=== PATIENT | male | born 1985 | race Caucasian/White ===

== ENCOUNTER 2017-09-24 07:06 | Inpatient (IN) | payer OTHER ==
[~2017-09-24] VITALS: Ht 170.2 cm; Wt 129.9 kg
[~2017-09-24 07:06] MED LIST: HUMALOG100 UNIT/2 SC; LANTUS SOLOS100 U/ML SC; METFORMIN1000 MG PO; MOTRIN 600 MG600 MG PO; ZITHROMAX Z-PA250 M1 PO
--- NOTE | 2017-09-24 07:28 | ED GENERAL ADULT ---
History of Present Illness General Chief Complaint: Dyspnea (COPD, CHF, Other) Stated Complaint: SOB Source: patient Exam Limitations: no limitations Allergies Coded Allergies: shrimp (Severe, MOUTH SWELLING 09/24/17) Reconcile Medications Atorvastatin Calcium (Lipitor) 10 MG TABLET 1 TAB PO DAILY CHOLESTEROL ( Reported) Insulin Degludec (Tresiba Flextouch U-200) 200 UNIT/ML (3 ML) INSULN.PEN 24 UNITS SC DAILY DIABETES (Reported) Insulin Lispro (Humalog) (Unknown Strength) VIAL (Unknown Dose) SC SEE SLIDING SCALE DIABETES (Reported) Metformin HCl 500 MG TABLET 1 TAB PO BID DIABETES (Reported) Triage Note: PT C/O SOB WITH EXERTION SINCE THIS MORNING. STATES HE HAD ASTHMA A CHILD BUT HAS NEVER HAD AN ASTHMA ATTACK. PT STATES EVEN WALKING CAUSED SOB. O2 SATS 98% IN TRIAGE. PT DENIES CP Triage Nurses Notes Reviewed? yes Onset: Abrupt Duration: day(s): Timing: recent history HPI: 09/24/17 8:48 am 32-year-old male presents to the emergency department complaining of difficulty breathing. The patient states he was in his usual state of health until the past several days when he developed progressive difficulty breathing. He does admit to polyuria. He has past medical history of asthma and diabetes. He denies any fever or cough. No chest pain. (Berlin Ziegler DO) Vital Signs & Intake/Output Vital Signs & Intake/Output Vital Signs Date Time Temp Pulse Resp B/P B/P Pulse O2 O2 Flow FiO2 Mean Ox Delivery Rate 09/24 1156 98.0 107 20 146/80 99 Room Air 09/24 1025 97.7 114 18 139/73 98 Room Air 09/24 0857 98.3 107 20 129/72 99 Room Air 09/24 0819 99 Room Air 09/24 0717 97.4 121 20 132/89 98 Room Air (Scott COLEMAN,Israel Reyes) Past History Travel History Traveled to [place] past 21 day No Medical History Any Pertinent Medical History? see below for history Neurological: NONE EENT: NONE Cardiovascular: NONE Respiratory: asthma Gastrointestinal: NONE Hepatic: NONE Renal: NONE Musculoskeletal: NONE Psychiatric: NONE Endocrine: diabetes Surgical History Surgical History: none Psychosocial History What is your primary language Maltese Tobacco Use: Never used ETOH Use: occasional use Illicit Drug Use: denies illicit drug use Family History Hx Contributory? No (Berlin Ziegler DO) Review of Systems Review of Systems Constitutional: Denies: fever. EENTM: Reports: no symptoms. Respiratory: Reports: short of breath. Denies: cough. Cardiovascular: Denies: chest pain. GI: Denies: abdominal pain. Genitourinary: Reports: frequency. Musculoskeletal: Reports: no symptoms. Skin: Denies: rash. Neurological/Psychological: Reports: no symptoms. Hematologic/Endocrine: Reports: no symptoms. Immunologic/Allergic: Reports: no symptoms. (Berlin Ziegler DO) Physical Exam Physical Exam General Appearance: well developed/nourished, alert, anxious Head: atraumatic, normal appearance Eyes: Bilateral: normal appearance, PERRL, EOMI. Ears, Nose, Throat: normal pharynx, normal ENT inspection Neck: normal inspection, supple, full range of motion Respiratory: normal breath sounds, chest non-tender, no respiratory distress Cardiovascular: regular rate/rhythm Peripheral Pulses: 4+ radial (R), 4+ radial (L) Gastrointestinal: soft, non-tender Back: normal range of motion Extremities: normal range of motion Neurologic/Psych: no motor/sensory deficits, awake, alert, oriented x 3 Skin: intact, normal color, warm/dry Core Measures ACS in differential dx? No CVA/TIA Diagnosis: No Sepsis Present: No Sepsis Focused Exam Completed? No (Berlin Ziegler DO) Progress Differential Diagnoses I considered the following diagnoses in my evaluation of the patient: [Pneumonia , pulmonary embolism, diabetic ketoacidosis, asthma] Initial ED EKG: nonspecific ST T wave chg, sinus tach (Berlin Ziegler DO) Plan of Care: Orders Procedure Date/time Status BASIC ELECTROLYTES PLUS BUN&CR 09/24 1200 Active Pathway - chart 09/24 1050 Active House Staff 09/24 1050 Active Code Status 09/24 1050 Active FingerStick- Glucose 09/24 1009 Active Patient Data 09/24 0852 Active Admit to inpatient 09/24 0850 Active Add-on Test (ER Only) 09/24 0850 Active URINALYSIS 09/24 922 Complete Intake & Output 09/25 0719 Active LACTIC ACID 09/24 814 Complete CORTISOL AM 09/24 814 Complete ACETONE 09/24 814 Complete Add-on Test (ER Only) 09/24 812 Active TROPONIN LEVEL 09/24 812 Complete D-DIMER 09/24 812 Complete COMPREHENSIVE METABOLIC PANEL 09/24 812 Complete CBC WITHOUT DIFFERENTIAL 09/24 812 Complete EKG 09/24 717 Active VTE Mechanical Prophylaxis 09/24 UNK Active Current Medications Sig/Elli Start time Last Medication Dose Stop Time Status Admin Enoxaparin Sodium 40 MG DAILY 09/25 0900 AC (Lovenox) Sodium Chloride 1,000 ML BOLUS ONE 09/24 1145 UNVr 09/24 (Normal Saline 0.9%) 09/24 1344 1151 Potassium Chloride 20 MEQ ONCE ONE 09/24 1000 AC 09/24 (KCl 20MEQ in D5W 09/24 1639 1000 2NS 1000ML) Dextrose/Sodium 1,000 ML Chloride (D5W-05/20 Normal Saline 1000ML) Sodium Bicarbonate 150 MEQ Q6H 09/24 0930 CAN (Sodium Bicarbonate 8.4%) Dextrose/Water 850 ML (D5W 1000) Laboratory Tests 09/24/17 0932: Urinalysis LIGHT H, Urine Color STRAW, Urine Clarity CLEAR, Urine pH 6.0, Ur Specific [place] >= 1.030, Urine Protein 30 H, Urine Ketones >=80, Urine Nitrite NEG, Urine Bilirubin NEG, Urine Urobilinogen 0.2, Ur Leukocyte Esterase NEG, Ur Microscopic SEDIMENT EXAMINED, Urine RBC RARE, Urine WBC RARE, Urine Bacteria RARE H, Granular Casts RARE H, Urine Mucus FEW, Urine Hemoglobin NEG, Urine Glucose 500 H 09/24/17 0815: Anion Gap 30 H, Estimated GFR > 60, BUN/Creatinine Ratio 11.1, Glucose 322 H, Lactic Acid 1.1, Calcium 9.0, Total Bilirubin 1.3, AST 69 H, ALT 162 H, Alkaline Phosphatase 89, Troponin I < 0.01, Total Protein 8.1, Albumin 5.1 H, Globulin 3.0, Albumin/Globulin Ratio 1.7, Cortisol AM Sample 27.0 H, D-Dimer High Sensitivty 200, CBC w Diff NO MAN DIFF REQ, RBC 5.94, MCV 86.6, MCH 29.6, MCHC 34.2, RDW 13.3, MPV 8.8, Gran % 75.0, Lymphocytes % 16.0 L, Monocytes % 7.0, Eosinophils % 1.6, Basophils % 0.4, Absolute Granulocytes 6.6 H, Absolute Lymphocytes 1.4, Absolute Monocytes 0.6, Absolute Eosinophils 0.1, Absolute Basophils 0, Acetone Level POSITIVE AT 1:8 DIL (Israel Chavez MD) Departure Departure Disposition: STILL A PATIENT Condition: Stable Clinical Impression Primary Impression: Dyspnea Referrals: Dunia OCLEMAN,Carrington August Departure Forms: Customer Survey General Discharge Information (Berlin Ziegler DO) Admission Note Spoke With: Bassem COLEMAN,Aron Pierce Documentation of Exam: Documentation of any treatments & extenuating circumstances including Concerns Regarding Discharge (functional status, medication knowledge or non-compliance, living conditions, etc.) that warrant an admission rather than observation: [ Patient is in DKA. Patient denies any history of toxic alcohol. Patient ran out of his insulin 2 weeks ago. Case discussed with Dr. Adams will see him in consultation. A bicarbonate drip has been initiated. An insulin drip has been initiated. Patient is receiving D5 half normal with potassium as well.] (Israel Cahvez MD) Critical Care Note Critical Care Note Critical Care Time: non-applicable (Berlin Ziegler DO) Critical Care Note Critical Care Time: mins: (90 MIN) (Israel Chavez MD)
[2017-09-24] MEDS ORDERED: TRESIBA FL200 UNIT/1 SC (08:04)
[2017-09-24] MEDS ORDERED: LIPITOR10 M1 PO (08:04)
[2017-09-24] MEDS ORDERED: METFORMIN HCL500 M3 PO (08:04)
[2017-09-24 08:28] LABS: ABSOLUTE BASOPHIL COUNT 0 /CUMM (0.0-0.2); ABSOLUTE EOSINOPHIL COUNT 0.1 /CUMM (0.0-0.7); ABSOLUTE GRANULOCYTE CT 6.6 /CUMM (1.4-6.5); ABSOLUTE LYMPH COUNT 1.4 /CUMM (1.2-3.4); ABSOLUTE MONOCYTE COUNT 0.6 /CUMM (0.10-0.60); BASOPHIL % 0.4 % (0.0-2.0); EOSINOPHIL % 1.6 % (0-5); HEMATOCRIT 51.4 % (42-52); MEAN CORPUSCULAR HGB 29.6 PG (27.0-31.0); MEAN CORPUSCULAR HGB CONC 34.2 G/DL (33.0-37.0); MEAN CORPUSCULAR VOLUME 86.6 FL (80.0-94.0); MEAN PLATELET VOLUME 8.8 FL (7.4-10.4); PLATELET COUNT 298 /CUMM (130-400); RBC DISTRIBUTION WIDTH 13.3 % (11.5-14.5); RED BLOOD CELL CT 5.94 /CUMM (4.70-6.10); WHITE BLOOD CELL COUNT 8.8 /CUMM (4.8-10.8)
--- NOTE | 2017-09-24 08:40 | RADIOLOGY REPORT ---
EXAMINATION: XR PORTABLE CHEST CLINICAL INFORMATION: 32-year-old male patient with shortness of breath. COMPARISON: Chest x-ray on 11/10/2013. (Negative). TECHNIQUE: Portable AP portable semierect view of the chest was obtained. FINDINGS: No significant abnormality is noted involving the heart, lungs, mediastinum, bony thorax or soft tissues. IMPRESSION: Unremarkable examination.
--- NOTE | 2017-09-24 10:32 | History & Physical ---
Earl COLEMAN,[facility] 09/24/17 1031: General Information and HPI MD Statement: I have seen and personally examined DARBY LANE and documented this H&P. The patient is a 32 year old M who presented with a patient stated chief complaint of shortness of breath. Source of Information: patient Exam Limitations: no limitations History of Present Illness: This is a 32-year-old pleasant gentleman with a past medical history of type 1 diabetes diagnosed 10 years ago managed with Tresibia and NovoLog Flex pen to the ED with complaints of shortness of breath. Pt reports that earlier today in the morning, he developed shortness of breath. He described his breathing as rapid and was not exertional dependent. He denied any upper respiratory symptoms including cough, mucus production, fever, chills, recent infection, sick contacts or recent travel. He also did not complain of any chest pain, palpitation, lower extremity edema or apnea. At the ED, he reported that he has not taken his insulin regimen for about 1-1/2 week. He states that he had ran out of refills on both his NovoLog and Tresibia and it was his understanding that he needed to go see his review assistant before he gets any refills. He reports that after 1 week off not taking his insulin he started developing symptoms of worsening polyuria, he however did not inform his review assistant and the reason why he presented today, was for the rapid breathing. At the ED, patient was found to have sugars of 320, a bicarbonate of 6, and positive ketones. Allergies/Medications Allergies: Coded Allergies: shrimp (Severe, MOUTH SWELLING 09/24/17) Home Med list Atorvastatin Calcium (Lipitor) 10 MG TABLET 1 TAB PO DAILY CHOLESTEROL ( Reported) Insulin Degludec (Tresiba Flextouch U-200) 200 UNIT/ML (3 ML) INSULN.PEN 24 UNITS SC DAILY DIABETES (Reported) Insulin Lispro (Humalog) (Unknown Strength) VIAL (Unknown Dose) SC SEE SLIDING SCALE DIABETES (Reported) Metformin HCl 500 MG TABLET 1 TAB PO BID DIABETES (Reported) Past History Travel History Traveled to [place] past 21 day No Medical History Neurological: NONE EENT: NONE Cardiovascular: hyperlipidemia Respiratory: asthma Gastrointestinal: NONE Hepatic: NONE Renal: NONE Musculoskeletal: NONE Psychiatric: NONE Endocrine: diabetes Surgical History Surgical History: none Past Family/Social History Psychosocial History ETOH Use: occasional use Illicit Drug Use: denies illicit drug use Review of Systems Review of Systems EENTM: Reports: no symptoms. Cardiovascular: Reports: no symptoms. Respiratory: Reports: short of breath. GI: Reports: no symptoms. Genitourinary: Reports: no symptoms. Musculoskeletal: Reports: no symptoms. Skin: Reports: no symptoms. Neurological/Psychological: Reports: no symptoms. Hematologic/Endocrine: Reports: no symptoms. Immunologic/Allergic: Reports: no symptoms. All Other Systems: Reviewed and Negative Exam & Diagnostic Data Last 24 Hrs of Vital Signs/I&O Vital Signs Date Time Temp Pulse Resp B/P B/P Pulse O2 O2 Flow FiO2 Mean Ox Delivery Rate 09/24 1156 98.0 107 20 146/80 99 Room Air 09/24 1025 97.7 114 18 139/73 98 Room Air 09/24 0857 98.3 107 20 129/72 99 Room Air 09/24 0819 99 Room Air 09/24 0717 97.4 121 20 132/89 98 Room Air Intake & Output 09/24 1600 09/24 0800 09/24 0000 Intake Total 1000 Output Total Balance 1000 Intake, IV 1000 Patient 129.274 kg 129.274 kg Weight Weight Reported by Patient Reported by Patient Measurement Method Physical Exam General Appearance Alert, Oriented X3, Cooperative Skin No Breakdown, No Significant Lesion Skin Temp/Moisture Exam: Warm/Dry Sepsis Skin Exam (color): Normal for Ethnicity HEENT Atraumatic, Mucous Membr. moist/pink Neck Supple, No JVD Lymphatic Cervical nl Cardiovascular Regular Rate, Normal S1, Normal S2, No Murmurs Lungs Clear to Auscultation, Normal Air Movement Abdomen Normal Bowel Sounds, Soft, No Tenderness Neurological Normal Speech, Strength at 5/5 X4 Ext, Normal Tone, Sensation Intact, Reflexes 2+ Extremities No Clubbing, No Cyanosis, No Edema, Normal Pulses, No Tenderness/ Swelling Last 24 Hrs of Labs/Jason: Laboratory Tests 09/24/17 0932: Urinalysis LIGHT H, Urine Color STRAW, Urine Clarity CLEAR, Urine pH 6.0, Ur Specific [place] >= 1.030, Urine Protein 30 H, Urine Ketones >=80, Urine Nitrite NEG, Urine Bilirubin NEG, Urine Urobilinogen 0.2, Ur Leukocyte Esterase NEG, Ur Microscopic SEDIMENT EXAMINED, Urine RBC RARE, Urine WBC RARE, Urine Bacteria RARE H, Granular Casts RARE H, Urine Mucus FEW, Urine Hemoglobin NEG, Urine Glucose 500 H 09/24/17 0815: Anion Gap 30 H, Estimated GFR > 60, BUN/Creatinine Ratio 11.1, Glucose 322 H, Lactic Acid 1.1, Calcium 9.0, Total Bilirubin 1.3, AST 69 H, ALT 162 H, Alkaline Phosphatase 89, Troponin I < 0.01, Total Protein 8.1, Albumin 5.1 H, Globulin 3.0, Albumin/Globulin Ratio 1.7, Cortisol AM Sample 27.0 H, D-Dimer High Sensitivty 200, CBC w Diff NO MAN DIFF REQ, RBC 5.94, MCV 86.6, MCH 29.6, MCHC 34.2, RDW 13.3, MPV 8.8, Gran % 75.0, Lymphocytes % 16.0 L, Monocytes % 7.0, Eosinophils % 1.6, Basophils % 0.4, Absolute Granulocytes 6.6 H, Absolute Lymphocytes 1.4, Absolute Monocytes 0.6, Absolute Eosinophils 0.1, Absolute Basophils 0, Acetone Level POSITIVE AT 1:8 DIL Assessment/Plan Assessment: This is a 32-year-old gentleman with a 10 year history of type 1 diabetes who has not taken his insulin regimen for 1-1/2 weeks, presents with symptoms of shortness of breath and rapid breathing in the setting of elevated blood glucose levels, decreased bicarbonate and ketonuria. Impression * Shortness of breath, transient, now resolved. Most likely secondary to labored breathing due to Kussmaul breathing associated with metabolic acidosis from DKA. * Diabetes ketoacidosis as evident by elevated sugars of 322, bicarbonate of 6, ph of 7.22, and positive ketones. The cause of this patient's DKA is interruption of insulin therapy for 1-1/2 weeks. Underlying infection is another common cause of DKA, however patient does not show any clinical signs of infection. * History of chronic diseases: Diabetes type 1. Plan Admit to ICU Nothing by mouth s/p normal saline 1 L bolus, continue with 500 mils bolus 2 for now, Continue 6 units per hour of insulin drip, adjust accordingly per glucose level Continue D5 half normal saline at 150 per hour per endocrine recommendation as patient's blood glucose are not greatly elevated therefore will benefit on the D5 in the context of insulin drip use Accu-Chek every 1 hour Continue with 20 meq K+ supplementation, with the use of insulin, intracellualr shift of potassium can be anticipated BEP every 4-6 for now, hold insulin if k+ level fall below 3.3 Will switch to subcutaneous insulin once anion gap closes and bicarbonate improves to ~18, will allow a 1/2-1 hour overlap between insulin drip and the initiation of subcutaneous insulin. At that point based on patient ability to eat we will decide on wether to continue D5. Status full code DVT prophylaxis enoxaparin As Ranked By This Provider Problem List: 1. Dyspnea 2. DKA, type 1 Core Measures/Misc (02/02) Acute Coronary Syndrome ACS Diagnosis: No Congestive Heart Failure Congestive Heart Failure Diagnosis No Cerebrovascular Accident CVA/TIA Diagnosis: No VTE (View Protocol) VTE Risk Factors Acute Medical Illness No Mechanical VTE Prophylaxis d/t N/A MechProphylax Ordered No VTE Pharm Prophylaxis d/t NA PharmProphylax ordered Bassem COLEMAN,[facility] 09/24/171915: Review of Systems Review of Systems Constitutional: Reports: malaise, weakness. Core Measures/Misc (02/02) Sepsis (View protocol) Sepsis Present: No Attending MD Review Statement Attending Statement Attending MD Statement: examined this patient, discuss w/resident/PA/BIODIESEL PROCESS CONTROL TECHNICIAN, agreed w/resident/PA/BIODIESEL PROCESS CONTROL TECHNICIAN, discussed with family, reviewed EMR data (avail), discussed with nursing, discussed with case mgmt, reviewed images, amended to note Attending Assessment/Plan: Seen and examined independently General Appearance Alert, Oriented X3, Cooperative Skin No Breakdown, No Significant Lesion Skin Temp/Moisture Exam: Warm/Dry Sepsis Skin Exam (color): Normal for Ethnicity HEENT Atraumatic, Mucous Membr. moist/pink Neck Supple, No JVD Lymphatic Cervical nl Cardiovascular Regular Rate, Normal S1, Normal S2, No Murmurs Lungs Clear to Auscultation, Normal Air Movement Abdomen Normal Bowel Sounds, Soft, No Tenderness Neurological Normal Speech, Strength at 5/5 X4 Ext, Normal Tone, Sensation Intact, Reflexes 2+ Extremities No Clubbing, No Cyanosis, No Edema, Normal Pulses, No Tenderness/ Swelling Evaluated patient and the ED subsequently in the ICU This is a gentleman who ran out of his insulin recently with type 1 diabetes came in with severe metabolic acidosis. He probably has features of both type I and type II. No other significant complaints. When he came in he had a significantly large anion gap and his ABG was consistent with very severe metabolic acidosis. No other substance use, no other alcohol-like substance use. Since admission he has been for aggressively fluid resuscitated and then subsequently has been on insulin drip and now seems to be doing much better. Issues include significant diabetic ketoacidosis Severe metabolic acidosis Medication noncompliance Obesity Recent shortness of breath due to profound metabolic acidosis PLAN As noted above by the sales warehouse driver Continue IV fluids Switch to D5 half-normal saline with insulin drip Aggressive potassium replacement See insulin recommendation Keep the head of bed elevated Subcutaneous heparin Patient is critically ill total time spent 40 minutes Discussed with patient extensively about medication compliance
--- NOTE | 2017-09-24 12:21 | Cons- Endocrinology ---
General Information and HPI Consulting Request Date of Consult: 09/24/17 Requested By: medical team Reason for Consult: Diabetic ketoacidosis Source of Information: patient Exam Limitations: no limitations History of Present Illness: This 32-year-old male has known history of diabetes for 10 years. He has been on insulin at home including Tresiiba. He was also on metformin and Humalog. He was told initially that he had features of both 1 type I and type 2 diabetes according to the patient. He does suffer from being overweight. Apparently the patient ran out of his insulin and did not renew the prescription. He was waiting to see his diabetes doctor on the outside who is Dr. Rayo. He began to feel sick a few days ago and developed increased thirst and increased urination as well as shortness of breath. He finally came to the emergency room. Lab work in the ER shows that his glucose was 322, lactic acid 1.1, liver tests mildly elevated with an AST of 69 and an ALT of 162, CO2 is 6 and his anion gap is 30. The patient's initial sodium was 136, potassium 4.3 chloride 100. The findings are consistent with ketoacidosis. The patient denies any diabetic retinopathy or diabetic kidney disease. He denies any numbness or tingling of his fingers or toes. Allergies/Medications Allergies: Coded Allergies: shrimp (Severe, MOUTH SWELLING 09/24/17) Home Med List: Atorvastatin Calcium (Lipitor) 10 MG TABLET 1 TAB PO DAILY CHOLESTEROL ( Reported) Insulin Degludec (Tresiba Flextouch U-200) 200 UNIT/ML (3 ML) INSULN.PEN 24 UNITS SC DAILY DIABETES (Reported) Insulin Lispro (Humalog) (Unknown Strength) VIAL (Unknown Dose) SC SEE SLIDING SCALE DIABETES (Reported) Metformin HCl 500 MG TABLET 1 TAB PO BID DIABETES (Reported) Review of Systems Review of Systems Constitutional: Reports: chills, fever. Cardiovascular: Denies: chest pain. Respiratory: Reports: short of breath. GI: Denies: abdominal pain, nausea, vomiting. Musculoskeletal: Denies: back pain. Skin: Reports: no symptoms. Neurological/Psychological: Denies: cognitive dysfunction, confusion. Hematologic/Endocrine: Reports: polyuria, polydipsia. Denies: bruising, bleeding. Past History Travel History Traveled to [place] past 21 day No Medical History Neurological: NONE EENT: NONE Cardiovascular: hyperlipidemia Respiratory: asthma Gastrointestinal: NONE Hepatic: NONE Renal: NONE Musculoskeletal: NONE Psychiatric: NONE Endocrine: diabetes Surgical History Surgical History: 1 Psychosocial History ETOH Use: occasional use Illicit Drug Use: denies illicit drug use Exam & Diagnostic Data Last 24 Hrs of Vital Signs/I&O Vital Signs Date Time Temp Pulse Resp B/P B/P Pulse O2 O2 Flow FiO2 Mean Ox Delivery Rate 09/24 1156 98.0 107 20 146/80 99 Room Air 09/24 1025 97.7 114 18 139/73 98 Room Air 09/24 0857 98.3 107 20 129/72 99 Room Air 09/24 0819 99 Room Air 09/24 0717 97.4 121 20 132/89 98 Room Air Intake & Output 09/24 1600 09/24 0800 05/ 0000 Intake Total 1000 Output Total Balance 1000 Intake, IV 1000 Patient 285 lb 285 lb Weight Weight Reported by Patient Reported by Patient Measurement Method Vital Signs Date Time Temp Pulse Resp B/P B/P Pulse O2 O2 Flow FiO2 Mean Ox Delivery Rate 09/24 1156 98.0 107 20 146/80 99 Room Air 09/24 1025 97.7 114 18 139/73 98 Room Air 09/24 0857 98.3 107 20 129/72 99 Room Air 09/24 0819 99 Room Air 09/24 0717 97.4 121 20 132/89 98 Room Air Intake & Output 09/24 1600 09/24 0800 05/09 0000 Intake Total 1000 Output Total Balance 1000 Intake, IV 1000 Patient 285 lb 285 lb Weight Weight Reported by Patient Reported by Patient Measurement Method Physical Exam General Appearance: alert, awake, comfortable Head: normal appearance Neck: normal inspection Respiratory: normal breath sounds Cardiovascular: tachycardia Gastrointestinal: normal bowel sounds, soft, non-tender Extremities: normal inspection, no edema Neurologic/Psych: awake, alert, oriented x 3 Skin: intact Labs/Jason Results: Laboratory Tests 09/25 931 Urines Urinalysis LIGHT H Urine Color (YEL,AMB,STR) STRAW Urine Clarity (CLEAR) CLEAR Urine pH (5.0 - 8.0) 6.0 Ur Specific [place] (1.001 - 1.035) >= 1.030 Urine Protein (NEG,<30 MG/DL) 30 H Urine Ketones (NEG) >=80 Urine Nitrite (NEG) NEG Urine Bilirubin (NEG) NEG Urine Urobilinogen (0.1 - 1.0 EU/dl) 0.2 Ur Leukocyte Esterase (NEG) NEG Ur Microscopic SEDIMENT EXAMINED Urine RBC (0 - 5 /HPF) RARE Urine WBC (0 - 2 /HPF) RARE Urine Bacteria (NEG/NONE) RARE H Granular Casts (NONE /LPF) RARE H Urine Mucus (FEW,NONE) FEW Urine Hemoglobin (NEG) NEG Urine Glucose (N MG/DL) 500 H 05/09 0815 Chemistry Sodium (137 - 145 mmol/L) 136 L Potassium (3.5 - 5.1 mmol/L) 4.3 Chloride (98 - 107 mmol/L) 100 Carbon Dioxide (22 - 30 mmol/L) 6 *L Anion Gap (5 - 16) 30 H BUN (9 - 20 mg/dL) 10 Creatinine (0.7 - 1.2 mg/dL) 0.9 Estimated GFR (>60 ml/min) > 60 BUN/Creatinine Ratio (7 - 25 %) 11.1 Glucose (65 - 99 mg/dL) 322 H Lactic Acid (0.7 - 2.1 mmol/L) 1.1 Calcium (8.4 - 10.2 mg/dL) 9.0 Total Bilirubin (0.2 - 1.3 mg/dL) 1.3 AST (17 - 59 U/L) 69 H ALT (21 - 72 U/L) 162 H Alkaline Phosphatase (< 127 U/L) 89 Troponin I (<0.11 ng/ml) < 0.01 Total Protein (6.3 - 8.2 g/dL) 8.1 Albumin (3.5 - 5.0 g/dL) 5.1 H Globulin (1.9 - 4.2 gm/dL) 3.0 Albumin/Globulin Ratio (1.1 - 2.2 %) 1.7 Cortisol AM Sample (4.46 - 22.7 ug/dL) 27.0 H Coagulation D-Dimer High Sensitivty (0 - 243 ng/ml) 200 Hematology CBC w Diff NO MAN DIFF REQ WBC (4.8 - 10.8 /CUMM) 8.8 RBC (4.70 - 6.10 /CUMM) 5.94 Hgb (14.0 - 18.0 G/DL) 17.6 Hct (42 - 52 %) 51.4 MCV (80.0 - 94.0 FL) 86.6 MCH (27.0 - 31.0 PG) 29.6 MCHC (33.0 - 37.0 G/DL) 34.2 RDW (11.5 - 14.5 %) 13.3 Plt Count (130 - 400 /CUMM) 298 MPV (7.4 - 10.4 FL) 8.8 Gran % (42.2 - 75.2 %) 75.0 Lymphocytes % (20.5 - 51.1 %) 16.0 L Monocytes % (1.7 - 9.3 %) 7.0 Eosinophils % (0 - 5 %) 1.6 Basophils % (0.0 - 2.0 %) 0.4 Absolute Granulocytes (1.4 - 6.5 /CUMM) 6.6 H Absolute Lymphocytes (1.2 - 3.4 /CUMM) 1.4 Absolute Monocytes (0.10 - 0.60 /CUMM) 0.6 Absolute Eosinophils (0.0 - 0.7 /CUMM) 0.1 Absolute Basophils (0.0 - 0.2 /CUMM) 0 Toxicology Acetone Level (NEGATIVE) POSITIVE AT 1:8 DIL Assessment/Plan Assessment/Plan This 32-year-old male with a 10 year history of diabetes presents with diabetic ketoacidosis. His main complaint was increased thirst and urination as well as shortness of breath. His sugar was only 322 but his anion gap is elevated at 30 and his bicarbonate is reduced at 6. The patient initially received only 1 L of normal saline. We should continue normal saline for the first few hours at 500 cc/h. Since his sugar is only in the 300 range and we want to begin an insulin drip which should also place the patient on D5 half-normal saline with 20 mEq KCl at 150 cc/h. We will measure her sugar every hour. Repeat labs will be done 4 hours after the initial reading. The patient has had no nausea and vomiting and we can allow him to drink fluids as needed. Once his anion gap is closed and his bicarb is above 18 we can switch him back to subcutaneous insulin. We should measure the patient's hemoglobin A1c as well as his anti-nadine antibody. Consult Acknowledgment - Thank you for your consult request.
[2017-09-24 13:02] VITALS: BP 126/80
[2017-09-24 16:00] VITALS: BP 110/76
[2017-09-25] VITALS: BP 136/80
--- NOTE | 2017-09-25 07:23 | PN- Diabetes ---
Assessment/Plan Diabetes Assessment: The patient feels much improved. He states he is hungry. He is still on an insulin drip at 4 U/h with glucose in the IV. Labs this morning show creatinine 0.5 BUN 3 glucose 272 calcium 7.2 and 2.9 anion gap is 11 and CO2 is 17. Plan: Suggest that we can switch the patient to subcu insulin today. I would begin Levemir 14 units twice a day first dose now. We also need to begin NovoLog sliding scale before meals with a separate sliding scale at bedtime. NovoLog sliding scale before meals should be 80-150 give 6 units NovoLog, 151- 200 give 8 units NovoLog, 201-250 give 9 units NovoLog, 251 300 give 10 units NovoLog, 301-350 give 11 units NovoLog, 351-400 give 12 units NovoLog. Separate sliding scale at bedtime should be less than 250 give no insulin, 251- 300 give 2 units NovoLog, 301-350 give 3 units NovoLog, 351-400 give 4 units NovoLog. We should order a diabetic diet for the patient. 1 hour after the first dose of Levemir and the first dose of NovoLog we can shut off the insulin drip. We can also discontinue the patient's IV fluids as long as he is eating and drinking. The patient can be transferred out of the unit but should stay in the hospital today to observe his blood sugars further. We should check the patient's thyroid function tests including a free T4 and TSH and also the anti-DONI antibody Subjective Subjective: Feels okay Review of Systems Constitutional: Denies: chills, fever. Cardiovascular: Denies: chest pain. Respiratory: Denies: short of breath. Gastrointestinal: Denies: abdominal pain, vomiting. Skin: Reports: no symptoms. Objective Last 24 Hrs of Vital Signs/I&O Vital Signs Date Time Temp Pulse Resp B/P B/P Pulse O2 O2 Flow FiO2 Mean Ox Delivery Rate 09/25 0000 97.4 81 27 136/80 96 Room Air Room Air 09/24 2000 98 Room Air Room Air 09/24 1600 99 Room Air 09/24 1600 97.8 96 20 110/76 99 Room Air 09/24 1302 98.2 99 18 126/80 99 Room Air 09/24 1245 99 Room Air 09/24 1156 98.0 107 20 146/80 99 Room Air 09/24 1025 97.7 114 18 139/73 98 Room Air 09/24 0857 98.3 107 20 129/72 99 Room Air 09/24 0819 99 Room Air Intake & Output 09/25 0000 09/24 1600 Intake Total 1405 1085 1930 Output Total Balance 1405 1085 1930 Intake, IV 6880 491 8075 Intake, Oral 340 120 Number 0 0 Bowel Movements Patient 286 lb Weight Weight Bed scale Measurement Method Vital Signs Date Time Temp Pulse Resp B/P B/P Pulse O2 O2 Flow FiO2 Mean Ox Delivery Rate 09/25 0000 97.4 81 27 136/80 96 Room Air Room Air 09/24 2000 98 Room Air Room Air 09/24 1600 99 Room Air 09/24 1600 97.8 96 20 110/76 99 Room Air 09/24 1302 98.2 99 18 126/80 99 Room Air 09/24 1245 99 Room Air 09/24 1156 98.0 107 20 146/80 99 Room Air 09/24 1025 97.7 114 18 139/73 98 Room Air 09/24 0857 98.3 107 20 129/72 99 Room Air 09/24 0819 99 Room Air Intake & Output 09/25 0000 09/24 1600 Intake Total 1405 1085 1930 Output Total Balance 1405 1085 1930 Intake, IV 9120 237 4759 Intake, Oral 340 120 Number 0 0 Bowel Movements Patient 286 lb Weight Weight Bed scale Measurement Method Physical Exam General Appearance: alert, awake, comfortable Head: normal appearance Neck: normal inspection Respiratory: normal breath sounds Cardiovascular: regular rate/rhythm Abdomen: normal bowel sounds, soft Extremities: normal inspection Current Medications: Current Medications Sig/Elli Start time Last Medication Dose Route Stop Time Status Admin Enoxaparin Sodium 40 MG DAILY 09/25 899 AC SC Insulin Human Regular 100 UNIT ONCE ONE 09/24 1645 DC 09/24 Sodium Chloride 100 ML IV 09/24 1646 1711 Insulin Human Regular 8 UNITS ONCE ONE 09/24 929 DC 09/24 IV 09/24 930 0940 Insulin Human Regular 100 UNIT ONCE ONE 09/24 929 DC 09/24 Sodium Chloride 100 ML IV 09/24 930 0940 Potassium Chloride 20 MEQ Q6H 09/24 2115 AC 09/25 Dextrose/Sodium 1,000 ML IV 09/25 913 0643 Chloride Potassium Chloride 20 MEQ ONCE ONE 09/24 1000 DC 09/24 Dextrose/Sodium 1,000 ML IV 09/24 1639 1000 Chloride Potassium Phosphate 15 mMol ONE ONE 09/24 2300 DC 09/25 Sodium Chloride 250 ML IV 09/25 0304 0030 Sodium Bicarbonate 150 MEQ Q6H 09/24 929 CAN Dextrose/Water 850 ML IV Sodium Bicarbonate 50 MEQ ONCE ONE 09/24 929 DC 09/24 IV 09/24 0931 0946 Sodium Bicarbonate 150 MEQ ONCE ONE 09/24 929 DC 09/24 Dextrose/Water 850 ML IV 09/24 1609 1000 Sodium Chloride 1,000 ML BOLUS ONE 09/24 1145 DC 09/24 IV 09/24 1344 1151 Sodium Chloride 1,000 ML BOLUS ONE 09/24 929 DC 09/24 IV 09/24 1029 0938 Sodium Chloride 1,000 ML BOLUS ONE 09/24 0815 DC 09/24 IV 09/24 0914 0815 Findings Pertinent Lab/Jason Results: Laboratory Tests 09/2537 20 2009 1605 1222 Chemistry Sodium (137 - 145 mmol/L) 136 L 136 L 134 L 135 L 137 Potassium (3.5 - 5.1 mmol/L) 3.8 3.6 4.0 4.3 4.5 Chloride (98 - 107 mmol/L) 108 H 104 106 105 103 Carbon Dioxide (22 - 30 mmol/L) 17 L 18 L 14 L 15 L 11 L Anion Gap (5 - 16) 11 14 14 16 23 H BUN (9 - 20 mg/dL) 3 L 5 L 5 L 7 L 9 Creatinine (0.7 - 1.2 mg/dL) 0.5 L 0.6 L 0.6 L 0.7 0.8 Estimated GFR (>60 ml/min) > 60 > 60 > 60 > 60 > 60 BUN/Creatinine Ratio (7 - 25 %) 10.0 11.3 Glucose (65 - 99 mg/dL) 272 H 218 H 251 H Calcium (8.4 - 10.2 mg/dL) 7.2 L 8.1 L 7.9 L Phosphorus (2.5 - 4.5 mg/dL) 2.5 1.9 L 2.0 L Magnesium (1.6 - 2.3 mg/dL) 1.5 L 1.7 1.6 Total Bilirubin (0.2 - 1.3 mg/dL) 0.8 1.0 0.9 AST (17 - 59 U/L) 46 46 40 ALT (21 - 72 U/L) 108 H 111 H 112 H Albumin (3.5 - 5.0 g/dL) 2.9 L 3.4 L 3.5 09/24 09/24 1215 0932 Blood Gas Bicarbonate Actual (22 - 26 MEQ/L) 12 L Mixed VBG pH (7.31 - 7.41 PH) 7.22 L Mixed VBG pCO2 (41 - 51 TORR) 30 L Mixed VBG O2 Saturation (35 - 45 TORR) 26 L Carboxyhemoglobin (1.5 - 5.0 %) 1.1 L O2 Concentration % RA Temperature (97.0 - 100.0 FARH) 98.0 O2 Delivery Method RA Miscellaneous Phlebotomy Draw Site RAC Urines Urinalysis LIGHT H Urine Color (YEL,AMB,STR) STRAW Urine Clarity (CLEAR) CLEAR Urine pH (5.0 - 8.0) 6.0 Ur Specific [place] (1.001 - 1.035) >= 1.030 Urine Protein (NEG,<30 MG/DL) 30 H Urine Ketones (NEG) >=80 Urine Nitrite (NEG) NEG Urine Bilirubin (NEG) NEG Urine Urobilinogen (0.1 - 1.0 EU/dl) 0.2 Ur Leukocyte Esterase (NEG) NEG Ur Microscopic SEDIMENT EXAMINED Urine RBC (0 - 5 /HPF) RARE Urine WBC (0 - 2 /HPF) RARE Urine Bacteria (NEG/NONE) RARE H Granular Casts (NONE /LPF) RARE H Urine Mucus (FEW,NONE) FEW Urine Hemoglobin (NEG) NEG Urine Glucose (N MG/DL) 500 H 09/24 0815 Chemistry Sodium (137 - 145 mmol/L) 136 L Potassium (3.5 - 5.1 mmol/L) 4.3 Chloride (98 - 107 mmol/L) 100 Carbon Dioxide (22 - 30 mmol/L) 6 *L Anion Gap (5 - 16) 30 H BUN (9 - 20 mg/dL) 10 Creatinine (0.7 - 1.2 mg/dL) 0.9 Estimated GFR (>60 ml/min) > 60 BUN/Creatinine Ratio (7 - 25 %) 11.1 Glucose (65 - 99 mg/dL) 322 H Lactic Acid (0.7 - 2.1 mmol/L) 1.1 Calcium (8.4 - 10.2 mg/dL) 9.0 Total Bilirubin (0.2 - 1.3 mg/dL) 1.3 AST (17 - 59 U/L) 69 H ALT (21 - 72 U/L) 162 H Alkaline Phosphatase (< 127 U/L) 89 Troponin I (<0.11 ng/ml) < 0.01 Total Protein (6.3 - 8.2 g/dL) 8.1 Albumin (3.5 - 5.0 g/dL) 5.1 H Globulin (1.9 - 4.2 gm/dL) 3.0 Albumin/Globulin Ratio (1.1 - 2.2 %) 1.7 Cortisol AM Sample (4.46 - 22.7 ug/dL) 27.0 H Coagulation D-Dimer High Sensitivty (0 - 243 ng/ml) 200 Hematology CBC w Diff NO MAN DIFF REQ WBC (4.8 - 10.8 /CUMM) 8.8 RBC (4.70 - 6.10 /CUMM) 5.94 Hgb (14.0 - 18.0 G/DL) 17.6 Hct (42 - 52 %) 51.4 MCV (80.0 - 94.0 FL) 86.6 MCH (27.0 - 31.0 PG) 29.6 MCHC (33.0 - 37.0 G/DL) 34.2 RDW (11.5 - 14.5 %) 13.3 Plt Count (130 - 400 /CUMM) 298 MPV (7.4 - 10.4 FL) 8.8 Gran % (42.2 - 75.2 %) 75.0 Lymphocytes % (20.5 - 51.1 %) 16.0 L Monocytes % (1.7 - 9.3 %) 7.0 Eosinophils % (0 - 5 %) 1.6 Basophils % (0.0 - 2.0 %) 0.4 Absolute Granulocytes (1.4 - 6.5 /CUMM) 6.6 H Absolute Lymphocytes (1.2 - 3.4 /CUMM) 1.4 Absolute Monocytes (0.10 - 0.60 /CUMM) 0.6 Absolute Eosinophils (0.0 - 0.7 /CUMM) 0.1 Absolute Basophils (0.0 - 0.2 /CUMM) 0 Toxicology Acetone Level (NEGATIVE) POSITIVE AT 1:8 DIL
--- NOTE | 2017-09-25 07:46 | PN- Resident CRCU ---
Subjective HPI/CRCU Issues: No acute events overnight. Patient states he is normal. Seen by endocrinology this morning. Will switch from insulin drip to injectable insulin. Objective Vital Signs & I&O Last 8 Hrs of Vitals and I&O: Laboratory Tests 09/25 09/25 09/25 09/24 09/24 0537 0400 20 2009 160 Chemistry Sodium (137 - 145 mmol/L) 136 L 136 L 134 L 135 L Potassium (3.5 - 5.1 mmol/L) 3.8 3.6 4.0 4.3 Chloride (98 - 107 mmol/L) 108 H 104 106 105 Carbon Dioxide (22 - 30 mmol/L) 17 L 18 L 14 L 15 L Anion Gap (5 - 16) 11 14 14 16 BUN (9 - 20 mg/dL) 3 L 5 L 5 L 7 L Creatinine (0.7 - 1.2 mg/dL) 0.5 L 0.6 L 0.6 L 0.7 Estimated GFR (>60 ml/min) > 60 > 60 > 60 > 60 BUN/Creatinine Ratio (7 - 25 %) 10.0 Glucose (65 - 99 mg/dL) 272 H 218 H 251 H Calcium (8.4 - 10.2 mg/dL) 7.2 L 8.1 L 7.9 L Phosphorus (2.5 - 4.5 mg/dL) 2.5 1.9 L 2.0 L Magnesium (1.6 - 2.3 mg/dL) 1.5 L 1.7 1.6 Total Bilirubin (0.2 - 1.3 mg/dL) 0.8 1.0 0.9 AST (17 - 59 U/L) 46 46 40 ALT (21 - 72 U/L) 108 H 111 H 112 H Albumin (3.5 - 5.0 g/dL) 2.9 L 3.4 L 3.5 TSH (0.270 - 4.200 uIU/mL) 2.430 Free T4 (0.79 - 2.35 ng/dL) 1.68 Immunology DONI Antibody Pending 09/24 09/24 1222 1215 Blood Gas Bicarbonate Actual (22 - 26 MEQ/L) 12 L Mixed VBG pH (7.31 - 7.41 PH) 7.22 L Mixed VBG pCO2 (41 - 51 TORR) 30 L Mixed VBG O2 Saturation (35 - 45 TORR) 26 L Carboxyhemoglobin (1.5 - 5.0 %) 1.1 L O2 Concentration % RA Temperature (97.0 - 100.0 FARH) 98.0 O2 Delivery Method RA Chemistry Sodium (137 - 145 mmol/L) 137 Potassium (3.5 - 5.1 mmol/L) 4.5 Chloride (98 - 107 mmol/L) 103 Carbon Dioxide (22 - 30 mmol/L) 11 L Anion Gap (5 - 16) 23 H BUN (9 - 20 mg/dL) 9 Creatinine (0.7 - 1.2 mg/dL) 0.8 Estimated GFR (>60 ml/min) > 60 BUN/Creatinine Ratio (7 - 25 %) 11.3 Miscellaneous Phlebotomy Draw Site RAC Vital Signs Date Time Temp Pulse Resp B/P B/P Pulse O2 O2 Flow FiO2 Mean Ox Delivery Rate 09/26 799 96.8 80 20 110/70 99 Room Air 09/25 0800 99 Room Air 09/25 0000 97.4 81 27 136/80 96 Room Air Room Air 09/24 2000 98 Room Air Room Air 09/24 1600 99 Room Air 09/24 1600 97.8 96 20 110/76 99 Room Air 09/24 1302 98.2 99 18 126/80 99 Room Air 09/24 1245 99 Room Air 09/24 1156 98.0 107 20 146/80 99 Room Air Intake & Output 09/25 1600 09/25 0800 05 0000 Intake Total 1405 1085 Output Total Balance 1405 1085 Intake, IV 1405 745 Intake, Oral 340 Number 0 0 Bowel Movements Exam General Appearance: well developed/nourished, no apparent distress, alert, awake , obese Respiratory: normal breath sounds Cardiovascular: regular rate/rhythm Gastrointestinal: normal bowel sounds, soft, non-tender Extremities: trace LE edema, 2+ radial pulses Current Medications: Current Medications Sig/Elli Start time Last Medication Dose Route Stop Time Status Admin Calcium Carbonate 1,250 MG ONCE ONE 09/26 799 DC PO 09/25 800 Enoxaparin Sodium 40 MG DAILY 09/25 899 AC 09/25 [place] 0817 Insulin Aspart 0 AT BEDTIME 09/25 2100 AC SC Insulin Aspart 0 TIDAC 09/26 799 AC 09/25 [place] [address]50 Insulin Detemir 14 UNITS BID 09/25 899 AC 09/25 FL 0816 Insulin Human Regular 100 UNIT ONCE ONE 09/24 1645 DC 09/24 Sodium Chloride 100 ML IV 09/24 1646 1711 Magnesium Oxide 400 MG ONE ONE 09/25 0800 DC PO 09/25 0801 Potassium Chloride 20 MEQ Q6H 09/24 2115 DC 09/25 Dextrose/Sodium 1,000 ML IV 09/25 0914 0643 Chloride Potassium Chloride 20 MEQ ONCE ONE 09/24 1000 DC / Dextrose/Sodium 1,000 ML IV 09/24 1639 1000 Chloride Potassium Phosphate 15 mMol ONE ONE 09/24 2300 DC 09/25 Sodium Chloride 250 ML IV 09/25 0304 0030 Sodium Bicarbonate 150 MEQ ONCE ONE 09/24 0930 DC 09/24 Dextrose/Water 850 ML IV 09/24 1609 1000 Sodium Chloride 1,000 ML BOLUS ONE 09/24 1145 DC 09/24 IV 09/24 1344 1151 Impression/Plan Impression/Problem List Impression: A: 32-year-old male with a 10 year history of diabetes presents with diabetic ketoacidosis due to inability of getting medications x1.5 weeks. Plan: Respiratory: No Issues Infection: No Issues Cardiac: No issues Hemeonc:No Issues Metabolic: #Electrolyte derangements Calcium 7.2, magnesium 1.5, phosphorous 2.5 -cont to replnish as needed. Magnesium could be affecting calcium Alimentary: #DKA The patient initially presented with shortness of breath, polyuria and reports a history of not taking his insulin for 1.5 weeks. The patient did not know that he was able to get refills for his insulin. Initially found to have a blood glucose of 320, bicarbonate of 6, anion gap of 30 and positive ketones. He was given a bolus of 1L of D5W in the ED. He was then started on D51/2 NS with potassium and bicarbonate replenishment. He was started on an insulin drip and converted to injectable insulin as his anion gap closed and blood sugar was in the 200s. TSH and free T4 within normal limits -Follow-up anti-doni antibody -Continue following endocrinology recommendations for insulin. Currently on levemir and novolog. -Continue diabetic diet Neur: No issues Housekeeping: FULL CODE Diabetic Diet Problem List: 1. DKA, type 1 Pain Ratin Tomorrow's Labs & Rationales: cbc bep mg phos calcium Plan DVT/Prophylaxis: lovenox
[2017-09-25 08:00] VITALS: BP 110/70
--- NOTE | 2017-09-25 10:56 | PN- CRCU ---
Subjective HPI/Critical Care Issues: The patient feels much improved. He states he is hungry. He is still on an insulin drip at 4 U/h with glucose in the IV. Labs this morning show creatinine 0.5 BUN 3 glucose 272 calcium 7.2 and 2.9 anion gap is 11 and CO2 is 17. Objective Current Medications: Current Medications Sig/Elli Start time Last Medication Dose Route Stop Time Status Admin Calcium Carbonate 1,250 MG ONCE ONE 09/26 799 DC PO 09/25 08 Enoxaparin Sodium 40 MG DAILY 09/25 899 AC 09/25 OR 0817 Insulin Aspart 0 AT BEDTIME 09/25 2100 AC SC Insulin Aspart 0 TIDAC 09/25 08 AC 09/25 OR 0850 Insulin Detemir 14 UNITS BID 09/25 899 AC 09/25 SC 0816 Insulin Human Regular 100 UNIT ONCE ONE 09/24 1645 DC 09/24 Sodium Chloride 100 ML IV 09/24 1646 1711 Magnesium Oxide 400 MG ONE ONE 09/25 08 DC PO 09/25 0801 Potassium Chloride 20 MEQ Q6H 09/24 2115 DC 09/25 Dextrose/Sodium 1,000 ML IV 09/25 0914 0643 Chloride Potassium Chloride 20 MEQ ONCE ONE 09/24 1000 DC 09/24 Dextrose/Sodium 1,000 ML IV 09/24 1639 1000 Chloride Potassium Phosphate 15 mMol ONE ONE 09/24 2300 DC 09/25 Sodium Chloride 250 ML IV 09/25 0304 0030 Sodium Bicarbonate 150 MEQ ONCE ONE 09/24 0930 DC 09/24 Dextrose/Water 850 ML IV 09/24 1609 1000 Sodium Chloride 1,000 ML BOLUS ONE 09/24 1145 DC 09/24 IV 09/24 1344 1151 Vital Signs & I&O Last 24 Hrs of Vitals and I&O: Vital Signs Date Time Temp Pulse Resp B/P B/P Pulse O2 O2 Flow FiO2 Mean Ox Delivery Rate 09/25 0800 96.8 80 20 110/70 99 Room Air 09/25 0800 99 Room Air 09/25 0000 97.4 81 27 136/80 96 Room Air Room Air 09/24 2000 98 Room Air Room Air 09/24 1600 99 Room Air 09/24 1600 97.8 96 20 110/76 99 Room Air 09/24 1302 98.2 99 18 126/80 99 Room Air 09/24 1245 99 Room Air 09/24 1156 98.0 107 20 146/80 99 Room Air Intake & Output 09/25 1600 09/25 0800 09/25 0000 Intake Total 1405 1085 Output Total Balance 1405 1085 Intake, IV 1405 745 Intake, Oral 340 Number 0 0 Bowel Movements Laboratory Tests 09/25 09/25 09/25 09/24 09/24 0537 0400 0021 2009 1605 Chemistry Sodium (137 - 145 mmol/L) 136 L 136 L 134 L 135 L Potassium (3.5 - 5.1 mmol/L) 3.8 3.6 4.0 4.3 Chloride (98 - 107 mmol/L) 108 H 104 106 105 Carbon Dioxide (22 - 30 mmol/L) 17 L 18 L 14 L 15 L Anion Gap (5 - 16) 11 14 14 16 BUN (9 - 20 mg/dL) 3 L 5 L 5 L 7 L Creatinine (0.7 - 1.2 mg/dL) 0.5 L 0.6 L 0.6 L 0.7 Estimated GFR (>60 ml/min) > 60 > 60 > 60 > 60 BUN/Creatinine Ratio (7 - 25 %) 10.0 Glucose (65 - 99 mg/dL) 272 H 218 H 251 H Calcium (8.4 - 10.2 mg/dL) 7.2 L 8.1 L 7.9 L Phosphorus (2.5 - 4.5 mg/dL) 2.5 1.9 L 2.0 L Magnesium (1.6 - 2.3 mg/dL) 1.5 L 1.7 1.6 Total Bilirubin (0.2 - 1.3 mg/dL) 0.8 1.0 0.9 AST (17 - 59 U/L) 46 46 40 ALT (21 - 72 U/L) 108 H 111 H 112 H Albumin (3.5 - 5.0 g/dL) 2.9 L 3.4 L 3.5 TSH (0.270 - 4.200 uIU/mL) 2.430 Free T4 (0.79 - 2.35 ng/dL) 1.68 Immunology DONI Antibody Pending 09/24 09/24 09/24 1222 1213 0932 Blood Gas Bicarbonate Actual (22 - 26 MEQ/L) 12 L Mixed VBG pH (7.31 - 7.41 PH) 7.22 L Mixed VBG pCO2 (41 - 51 TORR) 30 L Mixed VBG O2 Saturation (35 - 45 TORR) 26 L Carboxyhemoglobin (1.5 - 5.0 %) 1.1 L O2 Concentration % RA Temperature (97.0 - 100.0 FARH) 98.0 O2 Delivery Method RA Chemistry Sodium (137 - 145 mmol/L) 137 Potassium (3.5 - 5.1 mmol/L) 4.5 Chloride (98 - 107 mmol/L) 103 Carbon Dioxide (22 - 30 mmol/L) 11 L Anion Gap (5 - 16) 23 H BUN (9 - 20 mg/dL) 9 Creatinine (0.7 - 1.2 mg/dL) 0.8 Estimated GFR (>60 ml/min) > 60 BUN/Creatinine Ratio (7 - 25 %) 11.3 Miscellaneous Phlebotomy Draw Site RAC Urines Urinalysis LIGHT H Urine Color (YEL,AMB,STR) STRAW Urine Clarity (CLEAR) CLEAR Urine pH (5.0 - 8.0) 6.0 Ur Specific [place] (1.001 - 1.035) >= 1.030 Urine Protein (NEG,<30 MG/DL) 30 H Urine Ketones (NEG) >=80 Urine Nitrite (NEG) NEG Urine Bilirubin (NEG) NEG Urine Urobilinogen (0.1 - 1.0 EU/dl) 0.2 Ur Leukocyte Esterase (NEG) NEG Ur Microscopic SEDIMENT EXAMINED Urine RBC (0 - 5 /HPF) RARE Urine WBC (0 - 2 /HPF) RARE Urine Bacteria (NEG/NONE) RARE H Granular Casts (NONE /LPF) RARE H Urine Mucus (FEW,NONE) FEW Urine Hemoglobin (NEG) NEG Urine Glucose (N MG/DL) 500 H 09/24 0815 Chemistry Sodium (137 - 145 mmol/L) 136 L Potassium (3.5 - 5.1 mmol/L) 4.3 Chloride (98 - 107 mmol/L) 100 Carbon Dioxide (22 - 30 mmol/L) 6 *L Anion Gap (5 - 16) 30 H BUN (9 - 20 mg/dL) 10 Creatinine (0.7 - 1.2 mg/dL) 0.9 Estimated GFR (>60 ml/min) > 60 BUN/Creatinine Ratio (7 - 25 %) 11.1 Glucose (65 - 99 mg/dL) 322 H Lactic Acid (0.7 - 2.1 mmol/L) 1.1 Calcium (8.4 - 10.2 mg/dL) 9.0 Total Bilirubin (0.2 - 1.3 mg/dL) 1.3 AST (17 - 59 U/L) 69 H ALT (21 - 72 U/L) 162 H Alkaline Phosphatase (< 127 U/L) 89 Troponin I (<0.11 ng/ml) < 0.01 Total Protein (6.3 - 8.2 g/dL) 8.1 Albumin (3.5 - 5.0 g/dL) 5.1 H Globulin (1.9 - 4.2 gm/dL) 3.0 Albumin/Globulin Ratio (1.1 - 2.2 %) 1.7 Cortisol AM Sample (4.46 - 22.7 ug/dL) 27.0 H Coagulation D-Dimer High Sensitivty (0 - 243 ng/ml) 200 Hematology CBC w Diff NO MAN DIFF REQ WBC (4.8 - 10.8 /CUMM) 8.8 RBC (4.70 - 6.10 /CUMM) 5.94 Hgb (14.0 - 18.0 G/DL) 17.6 Hct (42 - 52 %) 51.4 MCV (80.0 - 94.0 FL) 86.6 MCH (27.0 - 31.0 PG) 29.6 MCHC (33.0 - 37.0 G/DL) 34.2 RDW (11.5 - 14.5 %) 13.3 Plt Count (130 - 400 /CUMM) 298 MPV (7.4 - 10.4 FL) 8.8 Gran % (42.2 - 75.2 %) 75.0 Lymphocytes % (20.5 - 51.1 %) 16.0 L Monocytes % (1.7 - 9.3 %) 7.0 Eosinophils % (0 - 5 %) 1.6 Basophils % (0.0 - 2.0 %) 0.4 Absolute Granulocytes (1.4 - 6.5 /CUMM) 6.6 H Absolute Lymphocytes (1.2 - 3.4 /CUMM) 1.4 Absolute Monocytes (0.10 - 0.60 /CUMM) 0.6 Absolute Eosinophils (0.0 - 0.7 /CUMM) 0.1 Absolute Basophils (0.0 - 0.2 /CUMM) 0 Toxicology Acetone Level (NEGATIVE) POSITIVE AT 1:8 DIL Microbiology Date/Time Procedure - Status Source Growth 09/24 1250 Surveillance Culture - RECD UPPER RESP 09/24 1210 Surveillance Culture - COLB GI Impression/Plan Impression/Plan Impression/Plan: General Appearance Alert, Oriented X3, Cooperative Skin No Breakdown, No Significant Lesion Skin Temp/Moisture Exam: Warm/Dry Sepsis Skin Exam (color): Normal for Ethnicity HEENT Atraumatic, Mucous Membr. moist/pink Neck Supple, No JVD Lymphatic Cervical nl Cardiovascular Regular Rate, Normal S1, Normal S2, No Murmurs Lungs Clear to Auscultation, Normal Air Movement Abdomen Normal Bowel Sounds, Soft, No Tenderness Neurological Normal Speech, Strength at 5/5 X4 Ext, Normal Tone, Sensation Intact, Reflexes 2+ Extremities No Clubbing, No Cyanosis, No Edema, Normal Pulses, No Tenderness/ Swelling Evaluated patient and the ED subsequently in the ICU This is a gentleman who ran out of his insulin recently with type 1 diabetes came in with severe metabolic acidosis. He probably has features of both type I and type II. No other significant complaints. When he came in he had a significantly large anion gap and his ABG was consistent with very severe metabolic acidosis. No other substance use, no other alcohol-like substance use. Since admission he has been for aggressively fluid resuscitated and then subsequently has been on insulin drip and now seems to be doing much better. Issues include Resolved significant diabetic ketoacidosis Resolved Severe metabolic acidosis Medication noncompliance Obesity Resolved Recent shortness of breath due to profound metabolic acidosis PLAN See Endo note See insulin schedule as noted Ok to eat Ok to the floor Discussed with the patient about medication compliance TTS 36 mins
[2017-09-25 14:22] VITALS: BP 135/73
[2017-09-25 22:07] VITALS: BP 140/100
[2017-09-26 01:32] VITALS: BP 120/96
[2017-09-26 03:11] VITALS: BP 124/86
[2017-09-26 06:50] VITALS: BP 118/78
--- NOTE | 2017-09-26 07:23 | PN- Diabetes ---
Assessment/Plan Diabetes Assessment: The patient feels well this morning. He is eating. He is presently on 14 units of Levemir twice a day along with sliding scale NovoLog before meals with a separate sliding scale at bedtime. Blood sugars yesterday later in the day after he was off the insulin drip were 209 before lunch to 13 before dinner and 227 at bedtime. Plan: The patient's ketoacidosis has resolved. This morning's blood work is pending. If it is in a satisfactory range he can be discharged later today to home. Since he will have 14 units of Levemir on board when he gets home he should take half his usual dose of Tresiiba which would be 12 units. Tomorrow morning he can resume his full dose of Tresiiba which is 24 units daily. The patient also uses Humalog before meals. The patient has no insulin at home. Therefore we will have to call in a prescription for his insulin to his drugstore. The prescription should be Tresiiba U100 insulin pens #3 pens with the directions to use 24 units once a day. He also needs Humalog pens U100 #5 pens with the directions to use up to 40 units daily in divided doses before meals. Subjective Subjective: Feels okay Review of Systems Constitutional: Denies: chills, fever. Cardiovascular: Denies: chest pain. Respiratory: Denies: cough, short of breath. Gastrointestinal: Denies: abdominal pain, nausea, vomiting. Musculoskeletal: Denies: back pain. Skin: Reports: no symptoms. Objective Last 24 Hrs of Vital Signs/I&O Vital Signs Date Time Temp Pulse Resp B/P B/P Pulse O2 O2 Flow FiO2 Mean Ox Delivery Rate 09/26 0650 97.6 83 20 118/78 97 Room Air 09/26 0311 98 124/86 09/26 0132 88 120/96 09/25 2207 98.1 88 18 140/100 97 Room Air 09/25 1422 97.8 91 16 135/73 98 Room Air 09/25 0800 96.8 80 20 110/70 99 Room Air 09/25 0800 99 Room Air Intake & Output 09/26 0800 09/26 0000 09/25 1600 Intake Total 480 1010 Output Total 400 Balance 480 610 Intake, IV 0 30 Intake, Oral 480 980 Number 0 0 Bowel Movements Output, Urine 400 Vital Signs Date Time Temp Pulse Resp B/P B/P Pulse O2 O2 Flow FiO2 Mean Ox Delivery Rate 09/26 0650 97.6 83 20 118/78 97 Room Air 09/26 0311 98 124/86 09/26 0132 88 120/96 09/25 2207 98.1 88 18 140/100 97 Room Air 09/25 1422 97.8 91 16 135/73 98 Room Air 09/25 0800 96.8 80 20 110/70 99 Room Air 09/25 0800 99 Room Air Intake & Output 09/26 0800 09/26 0000 09/25 1600 Intake Total 480 1010 Output Total 400 Balance 480 610 Intake, IV 0 30 Intake, Oral 480 980 Number 0 0 Bowel Movements Output, Urine 400 Physical Exam General Appearance: alert, awake, comfortable Head: normal appearance Neck: normal inspection Respiratory: normal breath sounds Cardiovascular: regular rate/rhythm Abdomen: normal bowel sounds Extremities: normal inspection Current Medications: Current Medications Sig/Elli Start time Last Medication Dose Route Stop Time Status Admin Calcium Carbonate 1,250 MG ONCE ONE 09/25 08 DC 09/25 PO 09/25 0801 1124 Enoxaparin Sodium 40 MG DAILY 09/25 09 09/25 OR 0817 Insulin Aspart 0 AT BEDTIME 09/25 2100 [facility] Insulin Aspart 0 TIDAC 09/25 08 09/25 OR 1646 Insulin Detemir 14 UNITS BID 09/25 09 09/25 OR 2047 Magnesium Oxide 400 MG ONE ONE 09/25 0800 DC 09/25 PO 09/25 0801 1123 Potassium Chloride 20 MEQ Q6H 09/24 2115 DC 09/25 Dextrose/Sodium 1,000 ML IV 09/25 0914 0643 Chloride Findings Pertinent Lab/Jason Results: Laboratory Tests 09/26/17 0640: Sodium Pending, Potassium Pending, Chloride Pending, Carbon Dioxide Pending, Anion Gap Pending, BUN Pending, Creatinine Pending, BUN/Creatinine Ratio Pending , Calcium Pending, Phosphorus Pending, Magnesium Pending, CBC w Diff Pending, WBC Pending, RBC Pending, Hgb Pending, Hct Pending, MCV Pending, MCH Pending, MCHC Pending, RDW Pending, Plt Count Pending, MPV Pending
--- NOTE | 2017-09-26 07:26 | Discharge Summary ---
Hospital Course Course Primary Care Physician: Patient Has No Primary Care Dr Hospital Course: Assessment: 32-year-old male with a 10 year history of diabetes presents with diabetic ketoacidosis due to inability of getting medications x1.5 weeks initially admitted to the ICU and transferred to general Medicine. Problems: #DKA The patient initially presented with shortness of breath, polyuria and reports a history of not taking his insulin for 1.5 weeks. The patient did not know that he was able to get refills for his insulin. Initially found to have a blood glucose of 320, bicarbonate of 6, anion gap of 30 and positive ketones. He was given a bolus of 1L of D5W in the ED. He was then started on D51/2 NS with potassium and bicarbonate replenishment. He was started on an insulin drip and converted to injectable insulin as his anion gap closed and blood sugar was in the 200s. TSH and free T4 within normal limits Stevie antibody is pending #Electrolyte derangements The patient was found to have hypocalcemia, hypomagnesia, and low phosphorous. His electrolytes were monitored and replenished as needed. Allergies: Coded Allergies: shrimp (Severe, MOUTH SWELLING 09/24/17)
[2017-09-26 07:57] LABS: ABSOLUTE BASOPHIL COUNT 0 /CUMM (0.0-0.2); ABSOLUTE EOSINOPHIL COUNT 0.2 /CUMM (0.0-0.7); ABSOLUTE GRANULOCYTE CT 2.1 /CUMM (1.4-6.5); ABSOLUTE MONOCYTE COUNT 0.5 /CUMM (0.10-0.60); BASOPHIL % 0.5 % (0.0-2.0)
--- NOTE | 2017-09-26 08:13 | PN- Housestaff ---
Curtis Sierra 09/26/17 0812: Subjective Follow-up For: diabetic ketoacidosis Severe metabolic acidosis Medication noncompliance Obesity Subjective: Patient denies nausea, vomiting, abdominal pain, diarrhea, increased urinary frequency, diaphoresis, palpitations, SOB or CP. FSG 200s. Review of Systems Constitutional: Reports: see HPI. Objective Last 24 Hrs of Vital Signs/I&O Vital Signs Date Time Temp Pulse Resp B/P B/P Pulse O2 O2 Flow FiO2 Mean Ox Delivery Rate 09/26 0650 97.6 83 20 118/78 97 Room Air 09/26 0311 98 124/86 09/26 0132 88 120/96 09/25 2207 98.1 88 18 140/100 97 Room Air 09/25 1422 97.8 91 16 135/73 98 Room Air Intake & Output 09/26 1600 09/26 0800 09/26 0000 Intake Total 480 1010 Output Total 400 Balance 480 610 Intake, IV 0 30 Intake, Oral 480 980 Number 0 0 Bowel Movements Output, Urine 400 Physical Exam General Appearance: Alert, Oriented X3, Cooperative, No Acute Distress, Obese Cardiovascular: Regular Rate, Normal S1, Normal S2, No Murmurs Lungs: Clear to Auscultation, Normal Air Movement Abdomen: Normal Bowel Sounds, Soft, No Tenderness Extremities: No Edema Current Medications: Current Medications Sig/Elli Start time Last Medication Dose Route Stop Time Status Admin Enoxaparin Sodium 40 MG DAILY 09/25 09 09/26 [place] 0801 Insulin Aspart 0 AT BEDTIME 09/25 2100 [facility] Insulin Aspart 0 TIDAC 09/25 08 09/26 AL 0801 Insulin Detemir 14 UNITS BID 09/25 09 09/26 AL 0801 Last 24 Hrs of Lab/Jason Results Last 24 Hrs of Labs/Mics: Laboratory Tests 09/26/17 0640: Anion Gap 12, Estimated GFR > 60, BUN/Creatinine Ratio 8.3, Calcium 8.5, Phosphorus 3.6, Magnesium 1.8, CBC w Diff NO MAN DIFF REQ, RBC 5.11, MCV 86.7, MCH 29.0, MCHC 33.5, RDW 13.6, MPV 8.3, Gran % 53.3, Lymphocytes % 28.7, Monocytes % 12.5 H, Eosinophils % 5.0, Basophils % 0.5, Absolute Granulocytes 2.1, Absolute Lymphocytes 1.1 L, Absolute Monocytes 0.5, Absolute Eosinophils 0.2, Absolute Basophils 0 Assessment/Plan Assessment: Mr. Lopez is a 32-year-old pleasant gentleman with a past medical history of type 1 diabetes diagnosed 10 years ago managed with Tresibia and NovoLog Flex pen to the ED with complaints of shortness of breath. #DKA Patient was initially admitted to the ICU and transferred to [facility] with resolution of anion gap and controlled blood glucose. He was transitioned from an insulin infusion to subcutaneous insulin. His respiratory symptoms has also resolved with resolution of DKA. Appreciate Endo recommendations Today he will take 12U Tresiiba but resume his home doseTresiiba 24U/day tomorrow We will discharge patient with Humalog SS with a total of 40U/day before meals PRN Diet: Diabetic DVT ppx: sc Lovenix Code: FULL Problem List: 1. DKA, type 1 Pain Ratin Pain Location: NA Pain Goal: Remain pain free Pain Plan: NA Tomorrow's Labs & Rationales: none Saira Painter MD 09/26/17 1205: Attending MD Review Statement Attending Statement Attending MD Statement: examined this patient, discuss w/resident/PA/CHIMNEY BUILDER HELPER, agreed w/resident/PA/CHIMNEY BUILDER HELPER, discussed with nursing, discussed with case mgmt, reviewed images, amended to note Attending Assessment/Plan: Patient seen and examined, doing much better. Patient was admitted originally with DKA to ICU. After switch to subcutaneous insulin and he has been transferred out of ICU to medicine floor. His blood sugars are running in acceptable range. Patient was seen by supervisor [employer] morning. He is medically stable for discharge home today. Will follow the recommendations from Dr. Gonzalez. Patient was given all the recommendations about his insulin as recommended by Dr. Gonzalez. Patient should follow-up with his primary care doctor/supervisor [employer] as an outpatient. He is otherwise medically stable for discharge home today.
[2017-09-26 08:14] LABS: ABSOLUTE LYMPH COUNT 1.1 /CUMM (1.2-3.4); GRANULOCYTE % 53.3 % (42.2-75.2); MEAN CORPUSCULAR HGB CONC 33.5 G/DL (33.0-37.0); MEAN CORPUSCULAR VOLUME 86.7 FL (80.0-94.0); MEAN PLATELET VOLUME 8.3 FL (7.4-10.4); PLATELET COUNT 224 /CUMM (130-400); RBC DISTRIBUTION WIDTH 13.6 % (11.5-14.5); RED BLOOD CELL CT 5.11 /CUMM (4.70-6.10)
[2017-09-26 08:21] LABS: HEMATOCRIT 44.3 % (42-52)
[2017-09-26] MEDS ORDERED: TRESIBA FL200 UNIT/1 SC ×2 (10:25→18:54)
[2017-09-26] MEDS ORDERED: HUMALOG100 UNIT/2 SC (10:25)
--- NOTE | 2017-09-26 10:28 | Patient Discharge Instructions ---
Discharge Instructions General Discharge Information You were seen/treated for: DIABETIC KETOACIDOSIS You had these procedures: NONE Special Instructions: TAKE 12 UNITS TRESIIBA TODAY AND RESUME 24 UNITS TOMORROW AND THEREAFTER TAKE HUMALOG UP TO 40 UNITS BEFORE MEALS BASED ON 1UNITS PER [facility] FOLLOW UP WITH YOUR REWARDS CONSULTANT WITHIN 1 WEEK OF DISCHARGE Diet Recommended Diet: Diabetic Activity Full Activity/No Limits: Yes Acute Coronary Syndrome Inclusion Criteria At DC or during hospital stay patient has or had the following: ACS DIAGNOSIS No Discharge Core Measures Meds if any: Prescribed or Continued at Discharge Meds if any: NOT Prescribed or Continued at Discharge Congestive Heart Failure Inclusion Criteria At DC or during hospital stay patient has or had the following: CHF DIAGNOSIS No Discharge Core Measures Meds if any: Prescribed or Continued at Discharge Meds if any: NOT Prescribed or Continued at Discharge Cerebrovascular accident Inclusion Criteria At DC or during hospital stay patient has or had the following: CVA/TIA Diagnosis No Discharge Core Measures Meds if any: Prescribed or Continued at Discharge Meds if any: NOT Prescribed or Continued at Discharge Venous thromboembolism Inclusion Criteria VTE Diagnosis No VTE Type NONE VTE Confirmed by (Test) NONE Discharge Core Measures - Per Current guidelines, there needs to be overlap - treatment for the first 5 days of Warfarin therapy. - If discharged on Warfarin prior to 5 days of - overlap therapy, the patient will need to be - assessed for post discharge needs including - *Post discharge parental anticoagulation - *Warfarin and/or parental anticoagulation education - *Follow up date to check INR post discharge At least 5 days overlap therapy as Inpatient No Meds if any: Prescribed or Continued at Discharge Note: Overlap Therapy is Warfarin and Anticoagulant Meds if any: NOT Prescribed or Continued at Discharge
== END 2017-09-26 12:30 | DRG 638 ==
LOC: ERH 07:06 → CRI 09:50 → ERHI 09:50 → ENRESERV 11:55 → ENTRNSPT 12:26 → EDTRNSPT 12:29 → EDTRNSPTSTS 12:29 → CRI 12:35 → CMPTRNSPT 12:45 → ENTRNSPT 09-25 14:07 → CMPTRNSPT 09-25 14:13 → 2NB 09-25 14:15 → ENPENDDIS 09-26 10:36 → 2NB 09-26 12:30
PROVIDERS: Emergency Medicine
DX: E10.10 Type 1 diabetes mellitus with ketoacidosis without coma (principal); Z68.41 Body mass index [BMI] 40.0-44.9, adult; Z79.4 Long term (current) use of insulin; Z79.84 Long term (current) use of oral hypoglycemic drugs; J45.909 Unspecified asthma, uncomplicated; E66.9 Obesity, unspecified; Z91.14 Patient's other noncompliance with medication regimen; E78.5 Hyperlipidemia, unspecified
CPT/HCPCS: 2NBP; 83519; CCU; 36592; 71045; 81001; 82436; 93005; 93010; 96361; 96365; 96366; 96374; 96375; 99291; J1650; J1815; J7042; J7060